=== PATIENT | female | born 1970 | race American Indian/Alaskan Native ===

== ENCOUNTER 2019-02-11 09:35 | Emergency (ER) | payer SELFPAY ==
[2019-02-11 09:42] VITALS: BP 162/85
[2019-02-11] MEDS ORDERED: DECADRON IM ONE (10:02)
[2019-02-11] MEDS ORDERED: TORADOL IM ONE (10:02)
[2019-02-11] MEDS ORDERED: BICILLIN L-A IM ONE (10:03)
--- NOTE | 2019-02-11 10:06 | Emergency Department Report ---
ED ENT HPI - General Chief complaint: Sore Throat Stated complaint: HEADACHE/SORE THROAT Time Seen by Provider: 02/11/19 10:02 Source: patient Mode of arrival: Ambulatory Limitations: No Limitations - History of Present Illness Initial comments: 41-year-old female presents to ED with complaint of sore throat 3 days. Patient reports pain with swallowing, fever, headache, minor cough. Patient states headache and fever have resolved, however her sore throat remains. MD complaint: sore throat -: days(s) (3) Location: throat Severity: moderate Quality: sharp Consistency: constant Improves with: none Worsens with: swallowing Associated Symptoms: fever, cough, pain with swallowing, sore throat - Related Data Previous Rx's Medication Instructions Recorded Last Taken Type Naproxen [Naprosyn] 500 mg PO BID #20 tablet 02/11/19 Unknown Rx Allergies Allergy/AdvReac Type Severity Reaction Status Date / Time No Known Allergies Allergy Verified 02/11/19 09:42 ED Dental HPI - General Chief complaint: Sore Throat Stated complaint: HEADACHE/SORE THROAT Time Seen by Provider: 02/11/19 10:02 Source: patient Mode of arrival: Ambulatory Limitations: No Limitations - Related Data Previous Rx's Medication Instructions Recorded Last Taken Type Naproxen [Naprosyn] 500 mg PO BID #20 tablet 02/11/19 Unknown Rx Allergies Allergy/AdvReac Type Severity Reaction Status Date / Time No Known Allergies Allergy Verified 02/11/19 09:42 ED Review of Systems ROS: Stated complaint: HEADACHE/SORE THROAT Other details as noted in HPI Comment: All other systems reviewed and negative Constitutional: fever ENT: throat pain Respiratory: cough Gastrointestinal: denies: nausea, vomiting Neurological: headache ED Past Medical Hx - Past Medical History Previous Medical History?: No - Surgical History Additional Surgical History: Hysterectomy - Social History Smoking Status: Never Smoker Substance Use Type: None - Medications Home Medications: Home Medications Medication Instructions Recorded Confirmed Last Taken Type Naproxen [Naprosyn] 500 mg PO BID #20 tablet 02/11/19 Unknown Rx ED Physical Exam - General Limitations: No Limitations General appearance: alert, in no apparent distress - Head Head exam: Present: atraumatic, normocephalic - Eye Eye exam: Present: normal appearance - ENT ENT exam: Present: other (bilateral tonsillar swelling with exudates present; uvula midline; no drooling) - Neck Neck exam: Present: lymphadenopathy - Respiratory Respiratory exam: Present: normal lung sounds bilaterally. Absent: respiratory distress, stridor - Cardiovascular Cardiovascular Exam: Present: normal rhythm, tachycardia - GI/Abdominal GI/Abdominal exam: Absent: distended - Extremities Exam Extremities exam: Present: normal inspection - Neurological Exam Neurological exam: Present: alert, oriented X3, CN II-XII intact. Absent: motor sensory deficit - Psychiatric Psychiatric exam: Present: normal affect, normal mood - Skin Skin exam: Present: warm, dry, intact, normal color. Absent: rash ED Course Vital Signs 02/11/19 09:41 Temperature 98.9 F Pulse Rate 112 H Respiratory 16 Rate Blood Pressure 162/85 O2 Sat by Pulse 97 Oximetry ED Medical Decision Making - Medical Decision Making - bilateral tonsillar enlargement w/ exudates present - likely no abscess at this time as both tonsil equal in size, uvula midline, pt afbrile - positive strep test - airway intact, pt not drooling - decadron, toradol, bicillin LA given here in ED - ENT f/u info given - return precautions given - Differential Diagnosis strep throat, tonsillitis Critical care attestation.: If time is entered above; I have spent that time in minutes in the direct care of this critically ill patient, excluding procedure time. ED Disposition Clinical Impression: Acute tonsillitis Disposition: TO HOME OR SELFCARE Is pt being admited?: No Condition: Stable Instructions: Tonsillitis (ED) Prescriptions: Naproxen [Naprosyn] 500 mg PO BID #20 tablet Referrals: [facility] MD CLARA [Primary Care Provider] - 3-5 Days JUANA WOODS MD [Staff Physician] - 3-5 Days Forms: Work/School Release Form(ED) Time of Disposition: 10:38
== END 2019-02-11 11:06 | disposition home or self-care (01) ==
LOC: ED 09:35
DX: J03.90 Acute tonsillitis, unspecified (principal); Z90.710 Acquired absence of both cervix and uterus
CPT/HCPCS: 87430; 96372; 99283; J0561; J1100; J1885

== ENCOUNTER 2021-10-06 15:17 | Inpatient (IN) | payer OTHER ==
[2021-10-06] MEDS ORDERED: SODIUM CHLORIDE 0.9% 1000 ML 1,000 ML IV ONE ×2 (15:20→16:05)
--- NOTE | 2021-10-06 15:28 | Emergency Department Report ---
ED GI Bleed HPI - General Chief complaint: GI Bleed Stated complaint: GI BLEED Time Seen by Provider: 10/06/21 15:18 Source: patient Mode of arrival: Wheelchair Limitations: No Limitations - History of Present Illness Initial comments: 51-year female the past medical history myasthenia gravis presents to the hospital with rectal bleeding and syncopal episode in triage. Patient states she was at work, went to the bathroom, noticed blood when wiping after bowel movement. She then had the urge to have additional bowel movements and had watery bloody rectal output with very little stool. Patient felt lightheaded in route to the hospital and had a syncopal episode witnessed by staff. Staff reports that patient struck her head pretty hard on the ground. Patient complains of a frontal headache. Patient denies previous history of GI bleed. He drinks alcohol heavily over the weekend but denies - Related Data Home Medications Medication Instructions Recorded Confirmed Last Taken Ascorbic Acid [Vitamin C] 1,000 mg PO QDAY 10/06/21 10/06/21 Unknown Ashwagandha Root Extract 300 mg PO QDAY 10/06/21 10/06/21 Unknown Cholecalciferol Vit D3 [Vitamin D3 1,000 unit PO QDAY 10/06/21 10/06/21 Unknown 1,000 UNIT TAB] Ferrous Sulfate [Iron 325 MG] 325 mg PO QDAY 10/06/21 10/06/21 Unknown Pyridostigmine [Mestinon] 60 mg PO Q6HR 10/06/21 10/06/21 Unknown Allergies Allergy/AdvReac Type Severity Reaction Status Date / Time No Known Allergies Allergy Verified 02/11/19 09:42 ED Review of Systems ROS: Stated complaint: GI BLEED Other details as noted in HPI ED Past Medical Hx - Surgical History Additional Surgical History: Hysterectomy - Social History Smoking Status: Never Smoker Substance Use Type: None - Medications Home Medications: Home Medications Medication Instructions Recorded Confirmed Last Taken Type Ascorbic Acid [Vitamin C] 1,000 mg PO QDAY 10/06/21 10/06/21 Unknown History Ashwagandha Root Extract 300 mg PO QDAY 10/06/21 10/06/21 Unknown History Cholecalciferol Vit D3 [Vitamin D3 1,000 unit PO QDAY 10/06/21 10/06/21 Unknown History 1,000 UNIT TAB] Ferrous Sulfate [Iron 325 MG] 325 mg PO QDAY 10/06/21 10/06/21 Unknown History Pyridostigmine [Mestinon] 60 mg PO Q6HR 10/06/21 10/06/21 Unknown History ED Course Vital Signs 10/06/21 10/06/21 10/06/21 15:12 15:15 15:19 Temperature 98.3 F Pulse Rate 88 85 89 Respiratory 20 30 H 18 Rate Blood Pressure 106/63 Blood Pressure 106/63 [Left] O2 Sat by Pulse 100 100 100 Oximetry 10/06/21 10/06/21 10/06/21 15:31 15:45 16:01 Temperature Pulse Rate 77 87 Respiratory 15 18 Rate Blood Pressure 73/37 109/57 109/57 Blood Pressure [Left] O2 Sat by Pulse 99 97 Oximetry 10/06/21 10/06/21 10/06/21 16:14 16:15 16:39 Temperature Pulse Rate 91 H 117 H Respiratory 15 28 H Rate Blood Pressure 119/36 Blood Pressure [Left] O2 Sat by Pulse 100 100 96 Oximetry 10/06/21 10/06/21 10/06/21 16:45 17:01 17:15 Temperature Pulse Rate 104 H 88 89 Respiratory 18 Rate Blood Pressure 141/40 115/53 121/62 Blood Pressure [Left] O2 Sat by Pulse 100 100 100 Oximetry 10/06/21 10/06/21 10/06/21 17:31 17:45 18:01 Temperature Pulse Rate 92 H 88 92 H Respiratory Rate Blood Pressure 117/60 122/62 114/61 Blood Pressure [Left] O2 Sat by Pulse 100 100 100 Oximetry 10/06/21 10/06/21 10/06/21 18:15 18:31 18:45 Temperature Pulse Rate 96 H 91 H Respiratory Rate Blood Pressure 117/59 128/59 119/68 Blood Pressure [Left] O2 Sat by Pulse 100 100 100 Oximetry - Consultations Consultation #1: 10/06/21 15: 31 Case discussed emergency room documentation patient presentation of active rectal hemorrhage syncope. Labs and CT orders pending ED Medical Decision Making - Lab Data Result diagrams: 10/06/21 15:23 10/06/21 15:23 Lab Results 10/06/21 10/06/21 10/06/21 Range/Units 15:23 15:23 15:23 WBC 11.5 H (4.5-11.0) K/mm3 RBC 3.77 (3.65-5.03) M/mm3 Hgb 11.2 (10.1-14.3) gm/dl Hct 36.3 (30.3-42.9) % MCV 96 (79-97) fl MCH 30 (28-32) pg MCHC 31 (30-34) % RDW 14.2 (13.2-15.2) % Plt Count 200 (140-440) K/mm3 Lymph % (Auto) 33.3 (13.4-35.0) % Steele % (Auto) 8.8 H (0.0-7.3) % Eos % (Auto) 1.6 (0.0-4.3) % Baso % (Auto) 0.4 (0.0-1.8) % Lymph # (Auto) 3.8 (1.2-5.4) K/mm3 Steele # (Auto) 1.0 H (0.0-0.8) K/mm3 Eos # (Auto) 0.2 (0.0-0.4) K/mm3 Baso # (Auto) 0.0 (0.0-0.1) K/mm3 Seg Neutrophils % 55.9 (40.0-70.0) % Seg Neutrophils # 6.4 (1.8-7.7) K/mm3 PT 15.6 H (12.2-14.9) Sec. INR 1.12 (0.87-1.13) APTT 21.4 L (24.2-36.6) Sec. Sodium 141 (137-145) mmol/L Potassium 3.1 L (3.6-5.0) mmol/L Chloride 106.1 (98-107) mmol/L Carbon Dioxide 21 L (22-30) mmol/L Anion Gap 17 mmol/L BUN 8 (7-17) mg/dL Creatinine 0.7 (0.6-1.2) mg/dL Estimated GFR > 60 ml/min BUN/Creatinine Ratio 11 % Glucose 135 H (65-100) mg/dL Calcium 8.9 (8.4-10.2) mg/dL Magnesium (1.7-2.3) mg/dL Total Bilirubin 0.20 (0.1-1.2) mg/dL AST 19 (5-40) units/L ALT 10 (7-56) units/L Alkaline Phosphatase 80 (35-129) units/L Troponin T < 0.010 (0.00-0.029) ng/mL Total Protein 6.6 (6.3-8.2) g/dL Albumin 3.7 L (3.9-5) g/dL Albumin/Globulin Ratio 1.3 % Blood Type Antibody Screen Crossmatch 10/06/21 10/06/21 Range/Units 15:23 16:23 WBC (4.5-11.0) K/mm3 RBC (3.65-5.03) M/mm3 Hgb (10.1-14.3) gm/dl Hct (30.3-42.9) % MCV (79-97) fl MCH (28-32) pg MCHC (30-34) % RDW (13.2-15.2) % Plt Count (140-440) K/mm3 Lymph % (Auto) (13.4-35.0) % Steele % (Auto) (0.0-7.3) % Eos % (Auto) (0.0-4.3) % Baso % (Auto) (0.0-1.8) % Lymph # (Auto) (1.2-5.4) K/mm3 Steele # (Auto) (0.0-0.8) K/mm3 Eos # (Auto) (0.0-0.4) K/mm3 Baso # (Auto) (0.0-0.1) K/mm3 Seg Neutrophils % (40.0-70.0) % Seg Neutrophils # (1.8-7.7) K/mm3 PT (12.2-14.9) Sec. INR (0.87-1.13) APTT (24.2-36.6) Sec. Sodium (137-145) mmol/L Potassium (3.6-5.0) mmol/L Chloride (98-107) mmol/L Carbon Dioxide (22-30) mmol/L Anion Gap mmol/L BUN (7-17) mg/dL Creatinine (0.6-1.2) mg/dL Estimated GFR ml/min BUN/Creatinine Ratio % Glucose (65-100) mg/dL Calcium (8.4-10.2) mg/dL Magnesium 1.90 (1.7-2.3) mg/dL Total Bilirubin (0.1-1.2) mg/dL AST (5-40) units/L ALT (7-56) units/L Alkaline Phosphatase (35-129) units/L Troponin T (0.00-0.029) ng/mL Total Protein (6.3-8.2) g/dL Albumin (3.9-5) g/dL Albumin/Globulin Ratio % Blood Type O POSITIVE Antibody Screen Negative Crossmatch See Detail - EKG Data -: EKG Interpreted by Pr EKG shows normal: sinus rhythm, ST-T waves (no stemi) Rate: normal (88) - Radiology Data Radiology results: report reviewed CT head/brain wo con INDICATION / CLINICAL INFORMATION: 51 years Female; syncope, head injury. TECHNIQUE: Routine CT head without contrast. All CT scans at this location are performed using CT dose reduction for ALAEscapia by means of automated exposure control. COMPARISON: None. FINDINGS: BRAIN / INTRACRANIAL CONTENTS: The motion degrades the image quality. However, the brain appears to demonstrate appropriate attenuation for age. The ventricular system is within normal limits in size and configuration. There is no clear CT evidence of acute intracranial hemorrhage or significant mass effect. ORBITS: No significant abnormality of visualized orbits. SINUSES / MASTOIDS: No significant abnormality in the visualized paranasal sinuses or mastoid air cells. CRANIOCERVICAL JUNCTION: No significant abnormality. ADDITIONAL FINDINGS: None. IMPRESSION: 1. There is no clear CT evidence of acute intracranial process. CTA ABDOMEN AND PELVIS WITH CONTRAST INDICATION / CLINICAL INFORMATION: rectal hemorrhage. TECHNIQUE: Axial CT images were obtained through the abdomen and pelvis after after injection of 100 cc of Omnipaque 350 IV contrast. 3 plane MIP / 3D reconstructions were produced. All CT scans at this location are performed using CT dose reduction for Uvinum by means of automated exposure control. COMPARISON: None available. FINDINGS: AORTA: No significant abnormality. RENAL ARTERIES: No significant abnormality. CELIAC ARTERY: No significant abnormality. SUPERIOR MESENTERIC ARTERY: No significant abnormality. INFERIOR MESENTERIC ARTERY: No significant abnormality. RIGHT ILIAC ARTERIES: No significant abnormality.. LEFT ILIAC ARTERIES: No significant abnormality.. ADDITIONAL FINDINGS: There is diverticulosis without diverticulitis. Several bilateral renal cysts. No hydronephrosis or nephrolithiasis. SKELETAL: No significant abnormality. IMPRESSION: 1. There is diverticulosis without diverticulitis, otherwise no CT findings to explain symptomatology. - Medical Decision Making 51-year-old female presents to the hospital with rectal bleeding and syncope. Patient did have transient hypotension that improved with IV fluid bolus. Patient did not have recurrent rectal hemorrhage after initial presentation. Initial hemoglobin 11.2 but I anticipate this will drop based on patient's presentation and syncope. CT head unremarkable. CT abdomen pelvis reveals diverticulosis likely the source of the bleeding. Case emergently discussed with GI who will consult on the patient today. Hospitalist to admit. 2 units of PRBCs ordered for type and cross and placed on hold Critical Care Time: Yes Critical care time in (mins) excluding proc time.: 35 Critical care attestation.: If time is entered above; I have spent that time in minutes in the direct care of this critically ill patient, excluding procedure time. Critical Care Time: 35Minutes of critical care time excluding procedures were used in the care of the patient. I came immediately to the bedside upon patient's arrival. I discussed treatment plan with the nursing team members. I reviewed electronic record. Patient required multiple interventions and reassessments. Emergency spoke to GI physician regarding patient ED Disposition Clinical Impression: Rectal bleed, Diverticulosis, Syncope Disposition: ADMITTED INPATIENT Is pt being admited?: Yes Condition: Stable Time of Disposition: 17:41 (venkatesh)
[2021-10-06 15:38] LABS: Basophils % (Auto) 0.4 % (0.0-1.8); Eosinophils # (Auto) 0.2 K/mm3 (0.0-0.4); Eosinophils % (Auto) 1.6 % (0.0-4.3); Hematocrit 36.3 % (30.3-42.9); Hemoglobin 11.2 gm/dl (10.1-14.3); Lymphocytes # (Auto) 3.8 K/mm3 (1.2-5.4); Lymphocytes % (Auto) 33.3 % (13.4-35.0); Mean Corpuscular HGB Conc 31 % (30-34); Mean Corpuscular Volume 96 fl (79-97); Monocytes % (Auto) 8.8 % (0.0-7.3); Platelet Count 200 K/mm3 (140-440); Red Blood Count 3.77 M/mm3 (3.65-5.03); Red Cell Distribution Width 14.2 % (13.2-15.2)
[2021-10-06 15:49] LABS: INR 1.12 (0.87-1.13)
[2021-10-06 15:50] LABS: Partial Thromboplastin Time 21.4 Sec. (24.2-36.6)
[2021-10-06 15:56] LABS: Alanine Aminotransferase 10 units/L (7-56); Albumin 3.7 g/dL (3.9-5); Blood Urea Nitrogen 8 mg/dL (7-17); Calcium 8.9 mg/dL (8.4-10.2); Hemolysis Index 24
[2021-10-06 15:59] LABS: BUN/Creatinine Ratio 11
[2021-10-06] MEDS ORDERED: SODIUM CHLORIDE 0.9% 500 ML 500 ML IV ONE (16:04)
[2021-10-06] MEDS: POTASSIUM CHLORIDE 10 MEQ 10 MEQ/100 ML BAG IV SCH ×2 (17:05→18:19)
--- NOTE | 2021-10-06 17:13 | Cat Scan Report ---
CT head/brain wo con INDICATION / CLINICAL INFORMATION: 51 years Female; syncope, head injury. TECHNIQUE: Routine CT head without contrast. All CT scans at this location are performed using CT dos e reduction for ALARA by means of automated exposure control. COMPARISON: None. FINDINGS: BRAIN / INTRACRANIAL CONTENTS: The motion degrades the image quality. However, the brain appears to d emonstrate appropriate attenuation for age. The ventricular system is within normal limits in size an d configuration. There is no clear CT evidence of acute intracranial hemorrhage or significant mass e ffect. ORBITS: No significant abnormality of visualized orbits. SINUSES / MASTOIDS: No significant abnormality in the visualized paranasal sinuses or mastoid air yari ls. CRANIOCERVICAL JUNCTION: No significant abnormality. ADDITIONAL FINDINGS: None. IMPRESSION: 1. There is no clear CT evidence of acute intracranial process. Signer Name: Lico Licona MD Signed: 10/06/2021 5:08 PM Workstation Name: [id number]
--- NOTE | 2021-10-06 17:21 | Cat Scan Report ---
CTA ABDOMEN AND PELVIS WITH CONTRAST INDICATION / CLINICAL INFORMATION: rectal hemorrhage. TECHNIQUE: Axial CT images were obtained through the abdomen and pelvis after after injection of 100 cc of Omnipaque 350 IV contrast. 3 plane MIP / 3D reconstructions were produced. All CT scans at this location are performed using CT dose reduction for ALARA by means of automated exposure control. COMPARISON: None available. FINDINGS: AORTA: No significant abnormality. RENAL ARTERIES: No significant abnormality. CELIAC ARTERY: No significant abnormality. SUPERIOR MESENTERIC ARTERY: No significant abnormality. INFERIOR MESENTERIC ARTERY: No significant abnormality. RIGHT ILIAC ARTERIES: No significant abnormality.. LEFT ILIAC ARTERIES: No significant abnormality.. ADDITIONAL FINDINGS: There is diverticulosis without diverticulitis. Several bilateral renal cysts. N o hydronephrosis or nephrolithiasis. SKELETAL: No significant abnormality. IMPRESSION: 1. There is diverticulosis without diverticulitis, otherwise no CT findings to explain symptomatology . Signer Name: Saurabh Pineda DO Signed: 10/06/2021 5:17 PM Workstation Name: [id number]
[2021-10-06] MEDS ORDERED: PANTOPRAZOLE 40 MG INJ IV ONE (17:36)
--- NOTE | 2021-10-06 18:58 | History and Physical Report ---
History of Present Illness Date of examination: 10/06/21 Date of admission: 10/06/2021 Chief complaint: Lower GI bleed since a.m. History of present illness: 51-year-old female with past medical history of myasthenia gravis comes in for recurrent rectal bleeding associated with a syncopal episode in area. The first episode of large lower GI bleed. Never had a GI bleed in the past. Patient had a large bloody bowel movement this morning followed by amiodarone. 3. Patient syncopized. Patient struck her head pretty hard on the ground. Complains of frontal headache. No history of GI bleed. No chest pain. Feels weak. Feels lightheaded when standing. -Past medical history --Myasthenia gravis - Surgical History --Additional Surgical History: Hysterectomy - Social History --Smoking Status: Never Smoker --Substance Use Type: None - Family history --Htn Review of Systems ROS: Constitutional no weight loss or weight gain no fever or chills HEENT no sore throat no post nasal drip no diplopia Neck no neck stiffness no lymph gland enlargement Chest and lungs no shortness of breath cough or wheezing CVS no chest pain no diaphoresis no palpitations GI severe lower GI bleed Genitourinary system no dysuria no flank pain Musculoskeletal system no muscle pains no joint pains [employer] no syncope no seizures Skin no rash no itching Psychiatric no depression no homicidal or suicidal tendencies Hematologic no lymphedema or bruising Endocrine no polydipsia no polyuria no cold intolerance no heat intolerance Medications and Allergies Allergies Allergy/AdvReac Type Severity Reaction Status Date / Time No Known Allergies Allergy Verified 02/11/19 09:42 Home Medications Medication Instructions Recorded Confirmed Last Taken Type Ascorbic Acid [Vitamin C] 1,000 mg PO QDAY 10/06/21 10/06/21 Unknown History Ashwagandha Root Extract 300 mg PO QDAY 10/06/21 10/06/21 Unknown History Cholecalciferol Vit D3 [Vitamin D3 1,000 unit PO QDAY 10/06/21 10/06/21 Unknown History 1,000 UNIT TAB] Ferrous Sulfate [Iron 325 MG] 325 mg PO QDAY 10/06/21 10/06/21 Unknown History Pyridostigmine [Mestinon] 60 mg PO Q6HR 01/27/22 01/27/22 Unknown History Active Meds: Active Medications Potassium Chloride (Kcl 10meq/100ml) 10 meq in 100 mls @ 100 mls/hr IV Q1H TEMO Stop: 10/06/21 18:59 Last Admin: 10/06/21 18:19 Dose: 100 mls/hr Exam - Constitutional Vitals: Temp Pulse Resp BP Pulse Ox 98.3 F 91 H 18 119/68 100 10/06/21 15:19 10/06/21 18:45 10/06/21 16:45 10/06/21 18:45 10/06/21 18:45 General appearance: Present: no acute distress, well-nourished - EENT Eyes: Present: PERRL ENT: hearing intact, clear oral mucosa - Neck Neck: Present: supple, normal ROM - Respiratory Respiratory effort: normal Respiratory: bilateral: CTA - Cardiovascular Heart rate: 98 Rhythm: regular Heart Sounds: Present: S1 & S2. Absent: rub, click - Extremities Extremities: pulses symmetrical, No edema Peripheral Pulses: within normal limits - Abdominal General gastrointestinal: Present: soft, non-tender, non-distended, normal bowel sounds Female genitourinary: Present: normal - Rectal Rectal Exam: stool bloody - Integumentary Integumentary: Present: clear, warm, dry - Musculoskeletal Musculoskeletal: gait normal, strength equal bilaterally - Psychiatric Psychiatric: appropriate mood/affect, intact judgment & insight - Neurologic Neurologic: CNII-XII intact, moves all extremities HEART Score - HEART Score Troponin: Troponin T < 0.010 ng/mL (0.00-0.029) 10/06/21 15:23 Results - Labs CBC & Chem 7: 10/07/21 00:46 10/06/21 15:23 Labs: Laboratory Last Values WBC 11.5 K/mm3 (4.5-11.0) H 10/06/21 15:23 RBC 3.77 M/mm3 (3.65-5.03) 10/06/21 15:23 Hgb 11.2 gm/dl (10.1-14.3) 10/06/21 15:23 Hct 36.3 % (30.3-42.9) 10/06/21 15:23 MCV 96 fl (79-97) 10/06/21 15:23 MCH 30 pg (28-32) 10/06/21 15:23 MCHC 31 % (30-34) 10/06/21 15:23 RDW 14.2 % (13.2-15.2) 10/06/21 15:23 Plt Count 200 K/mm3 (140-440) 10/06/21 15:23 Lymph % (Auto) 33.3 % (13.4-35.0) 10/06/21 15:23 [place] % (Auto) 8.8 % (0.0-7.3) H 10/06/21 15:23 Eos % (Auto) 1.6 % (0.0-4.3) 10/06/21 15:23 Baso % (Auto) 0.4 % (0.0-1.8) 10/06/21 15:23 Lymph # (Auto) 3.8 K/mm3 (1.2-5.4) 10/06/21 15:23 [place] # (Auto) 1.0 K/mm3 (0.0-0.8) H 10/06/21 15:23 Eos # (Auto) 0.2 K/mm3 (0.0-0.4) 10/06/21 15:23 Baso # (Auto) 0.0 K/mm3 (0.0-0.1) 10/06/21 15: Seg Neutrophils % 55.9 % (40.0-70.0) 10/06/21 15: Seg Neutrophils # 6.4 K/mm3 (1.8-7.7) 10/06/21 15:23 PT 15.6 Sec. (12.2-14.9) H 10/06/21 15:23 INR 1.12 (0.87-1.13) 10/06/21 15:23 APTT 21.4 Sec. (24.2-36.6) L 10/06/21 15:23 Sodium 141 mmol/L (137-145) 10/06/21 15:23 Potassium 3.1 mmol/L (3.6-5.0) L 10/06/21 15:23 Chloride 106.1 mmol/L (98-107) 10/06/21 15:23 Carbon Dioxide 21 mmol/L (22-30) L 10/06/21 15:23 Anion Gap 17 mmol/L 10/06/21 15:23 BUN 8 mg/dL (7-17) 10/06/21 15:23 Creatinine 0.7 mg/dL (0.6-1.2) 10/06/21 15:23 Estimated GFR > 60 ml/min 10/06/21 15:23 BUN/Creatinine Ratio 11 % 10/06/21 15:23 Glucose 135 mg/dL (65-100) H 10/06/21 15:23 Calcium 8.9 mg/dL (8.4-10.2) 10/06/21 15:23 Magnesium 1.90 mg/dL (1.7-2.3) 10/06/21 16:23 Total Bilirubin 0.20 mg/dL (0.1-1.2) 10/06/21 15:23 AST 19 units/L (5-40) 10/06/21 15:23 ALT 10 units/L (7-56) 10/06/21 15:23 Alkaline Phosphatase 80 units/L (35-129) 10/06/21 15:23 Troponin T < 0.010 ng/mL (0.00-0.029) 10/06/21 15:23 Total Protein 6.6 g/dL (6.3-8.2) 10/06/21 15:23 Albumin 3.7 g/dL (3.9-5) L 10/06/21 15:23 Albumin/Globulin Ratio 1.3 % 10/06/21 15:23 Blood Type O POSITIVE 10/06/21 15:23 Antibody Screen Negative 10/06/21 15:23 Crossmatch See Detail 10/06/21 15:23 Short CBC 10/06/21 10/06/21 10/07/21 Range/Units 15:23 20:29 00:46 WBC 11.5 H (4.5-11.0) K/mm3 Hgb 11.2 9.4 L 9.2 L (10.1-14.3) gm/dl Hct 36.3 29.8 L D 29.2 L (30.3-42.9) % Plt Count 200 (140-440) K/mm3 BMP 10/06/21 15:23 Sodium 141 Potassium 3.1 L Chloride 106.1 Carbon Dioxide 21 L BUN 8 Creatinine 0.7 Glucose 135 H Calcium 8.9 Cardiac Enzymes 10/06/21 Range/Units 15:23 Troponin T < 0.010 (0.00-0.029) ng/mL Liver Function 10/06/21 Range/Units 15:23 Total Bilirubin 0.20 (0.1-1.2) mg/dL AST 19 (5-40) units/L ALT 10 (7-56) units/L Alkaline Phosphatase 80 (35-129) units/L Albumin 3.7 L (3.9-5) g/dL - Imaging and Cardiology CT scan - abdomen: report reviewed Imaging and Cardiology: Abdominal /pelvis CT scan There is diverticulosis without diverticulitis. Otherwise no CT findings to explain symptomatology. CT head no acute findings Assessment and Plan Advance Directives: Yes (Full code) VTE prophylaxis?: Mechanical Plan of care discussed with patient/family: Yes - Patient Problems (1) Lower GI bleed Current Visit: Yes Status: Acute Plan to address problem: Given the excessive amount of bright red blood--- possible diverticular bleed First episode GI consult requested (2) Acute blood loss anemia Current Visit: Yes Status: Acute Plan to address problem: Transfuse if necessary Serial hemoglobin and hematocrits (3) Syncope Current Visit: Yes Status: Acute Plan to address problem: Secondary to volume loss No further work-up (4) Head concussion Current Visit: Yes Status: Acute Qualifiers: Encounter type: initial encounter Loss of consciousness presence/duration: without LOC Qualified Code(s): S06.0X0A - Concussion without loss of consciousness, initial encounter Plan to address problem: Mild to moderate Analgesics as necessary (5) DVT prophylaxis Current Visit: Yes Status: Acute Plan to address problem: On SCDs and GI prophylaxis (6) Advance care planning Current Visit: Yes Status: Acute Plan to address problem: Disease education conducted, care plan discussed, diagnosis discussed, prognosis discussed. Patient is full code. Patient acknowledges understanding and agreement with care plan. +30 minutes.
[2021-10-06] MEDS ORDERED: HYDROmorphone 1 MG/1 ML INJ IV PRN (18:59)
[2021-10-06] MEDS ORDERED: ACETAMINOPHEN 325 MG TAB PO PRN (18:59)
[2021-10-06] MEDS ORDERED: ONDANSETRON 4 MG/2 ML INJ IV PRN (18:59)
[2021-10-06] MEDS ORDERED: MORPHINE 2 MG/1 ML INJ IV PRN (18:59)
[2021-10-06] MEDS ORDERED: SODIUM CHLORIDE 0.9% 1000 ML 1,000 ML IV SCH (19:00)
--- NOTE | 2021-10-06 19:42 | Gastroenterology Consultation ---
History of Present Illness - Reason for Consult Consult date: 10/06/21 GI bleed Requesting physician: NATI MAYO - History of Present Illness This is a 51 yo female with pmh of myasthenia gravis presenting to the ED for 1 day h/o rectal bleeding. Reports having bright red blood per rectum since 2 pm and had cramping lower abdominal pain followed by multiple episodes of blood per rectum. In the ED, she had a syncopal episode witnessed by staff and noted to have large bloody stool. She denies any anticoagulation use, or prior h/o GI bleed. No prior EGD/colonoscopy. No family hx of Colon cancer. Reports ibuprofen occasionally for SANTOS. Medication list reviewed. Past History Past Medical History: other (myasthenia gravis) Past Surgical History: No surgical history Social history: full code. denies: smoking Family history: no significant family history Medications and Allergies Allergies Allergy/AdvReac Type Severity Reaction Status Date / Time No Known Allergies Allergy Verified 02/11/19 09:42 Home Medications Medication Instructions Recorded Confirmed Last Taken Type Ascorbic Acid [Vitamin C] 1,000 mg PO QDAY 10/06/21 10/06/21 Unknown History Ashwagandha Root Extract 300 mg PO QDAY 10/06/21 10/06/21 Unknown History Cholecalciferol Vit D3 [Vitamin D3 1,000 unit PO QDAY 10/06/21 10/06/21 Unknown History 1,000 UNIT TAB] Ferrous Sulfate [Iron 325 MG] 325 mg PO QDAY 10/06/21 10/06/21 Unknown History Pyridostigmine [Mestinon] 60 mg PO Q6HR 10/06/21 10/06/21 Unknown History Active Meds: Active Medications Acetaminophen (Acetaminophen 325 Mg Tab) 650 mg PO Q4H PRN PRN Reason: Pain MILD(1-3)/Fever >100.5/SANTOS Famotidine (Famotidine 20 Mg/2 Ml Inj) 20 mg IV BID TEMO Hydromorphone HCl (Hydromorphone 1 Mg/1 Ml Inj) 0.5 mg IV Q3H PRN PRN Reason: Pain , Severe (7-10) Sodium Chloride (Nacl 0.9% 1000 Ml) 1,000 mls @ 75 mls/hr IV DIRECT TEMO Morphine Sulfate (Morphine 2 Mg/1 Ml Inj) 2 mg IV Q4H PRN PRN Reason: Pain, Moderate (4-6) Ondansetron HCl (Ondansetron 4 Mg/2 Ml Inj) 4 mg IV Q8H PRN PRN Reason: Nausea And Vomiting Sodium Chloride (Sodium Chloride 0.9% 10 Ml Flush Syringe) 10 ml IV BID TEMO Sodium Chloride (Sodium Chloride 0.9% 10 Ml Flush Syringe) 10 ml IV PRN PRN PRN Reason: LINE FLUSH Review of Systems - Review of Systems All systems: negative Constitutional: no weight loss, no weight gain, no fever, no chills Eyes: no change in vision Ears, Nose, Throat: no decreased hearing Cardiovascular: no chest pain, no edema Respiratory: no cough Gastrointestinal: abdominal pain, BRBPR, hematochezia, no nausea, no vomiting, no melena Rectal: no pain Musculoskeletal: no gait dysfunction Neurological: weakness, no paralysis Psychiatric: no anxiety Hematologic/Lymphatic: no easy bruising Allergic/Immunologic: no wheezing Exam - Constitutional Vital Signs: Temp Pulse Resp BP Pulse Ox 98.3 F 91 H 18 119/68 100 10/06/21 15:19 10/06/21 18:45 10/06/21 16:45 10/06/21 18:45 10/06/21 18:45 General appearance: no acute distress - EENT Eyes: EOM intact ENT: hearing intact - Neck Neck: supple - Respiratory Respiratory effort: normal - Cardiovascular Rhythm: regular Heart Sounds: Present: S1 & S2 Extremities: No edema - Gastrointestinal General gastrointestinal: Present: soft, non-tender, non-distended - Integumentary Integumentary: Present: clear, warm - Musculoskeletal Musculoskeletal: normal - Neurologic Neurological: alert and oriented x3 - Psychiatric Psychiatric: appropriate mood/affect - Labs CBC & Chem 7: 10/06/21 15:23 10/06/21 15:23 Lab Results: Laboratory Results - last 24 hr 10/06/21 10/06/21 10/06/21 15:23 15:23 15:23 WBC 11.5 H RBC 3.77 Hgb 11.2 Hct 36.3 MCV 96 MCH 30 MCHC 31 RDW 14.2 Plt Count 200 Lymph % (Auto) 33.3 [place] % (Auto) 8.8 H Eos % (Auto) 1.6 Baso % (Auto) 0.4 Lymph # (Auto) 3.8 [place] # (Auto) 1.0 H Eos # (Auto) 0.2 Baso # (Auto) 0.0 Seg Neutrophils % 55.9 Seg Neutrophils # 6.4 PT 15.6 H INR 1.12 APTT 21.4 L Sodium 141 Potassium 3.1 L Chloride 106.1 Carbon Dioxide 21 L Anion Gap 17 BUN 8 Creatinine 0.7 Estimated GFR > 60 BUN/Creatinine Ratio 11 Glucose 135 H Calcium 8.9 Magnesium Total Bilirubin 0.20 AST 19 ALT 10 Alkaline Phosphatase 80 Troponin T < 0.010 Total Protein 6.6 Albumin 3.7 L Albumin/Globulin Ratio 1.3 Blood Type Antibody Screen Crossmatch 10/06/21 10/06/21 15:23 16:23 WBC RBC Hgb Hct MCV MCH MCHC RDW Plt Count Lymph % (Auto) [place] % (Auto) Eos % (Auto) Baso % (Auto) Lymph # (Auto) [place] # (Auto) Eos # (Auto) Baso # (Auto) Seg Neutrophils % Seg Neutrophils # PT INR APTT Sodium Potassium Chloride Carbon Dioxide Anion Gap BUN Creatinine Estimated GFR BUN/Creatinine Ratio Glucose Calcium Magnesium 1.90 Total Bilirubin AST ALT Alkaline Phosphatase Troponin T Total Protein Albumin Albumin/Globulin Ratio Blood Type O POSITIVE Antibody Screen Negative Crossmatch See Detail - Imaging CT Scan: report reviewed Assessment and Plan # Lower GI bleed - Hgb at 11 - CTA showing diverticulosis but no active bleeding. - suspect diverticular bleed vs ischemic colitis vs malignancy. Rec - will plan for colonoscopy tomorrow. - monitor H/H and transfuse as needed. - golytely prep - clear liquids and NPO MN. - Patient Problems (1) Rectal bleed Current Visit: Yes Status: Acute
[2021-10-06] MEDS ORDERED: POLYETHYLENE GLYCOL/ELECT SOLN 4000 ML PO ONE (19:43)
[2021-10-06 21:03] LABS: Hematocrit 29.8 % (30.3-42.9); Hemoglobin 9.4 gm/dl (10.1-14.3)
[2021-10-06] MEDS: FAMOTIDINE 20 MG/2 ML INJ IV SCH (22:40)
[2021-10-07 01:40] LABS: Hematocrit 29.2 % (30.3-42.9); Hemoglobin 9.2 gm/dl (10.1-14.3)
--- NOTE | 2021-10-07 10:27 | Electrocardiograph Report ---
[facility] Test Date: 2021-10-06 Test Time: 20:38:58 Pat Name: MALLORY HUERTA Department: Room: A387 Gender: F Allopathic Doctor: TAMIKO : 1970 Requested By: NATI MAYO Order Number: [id number] Reading MD: Macho Dimas Measurements Intervals [place] Rate: 88 P: 69 AR: 142 QRS: 46 QRSD: 79 T: 49 QT: 374 QTc: 452 Interpretive Statements Sinus rhythm No previous ECG available for comparison Electronically Signed On 10-07-2021 10:26:23 EST by Macho Dimas
[2021-10-07 10:55] LABS: Basophils % (Auto) 0.5 % (0.0-1.8); Eosinophils # (Auto) 0.1 K/mm3 (0.0-0.4); Eosinophils % (Auto) 1.3 % (0.0-4.3); Hematocrit 28.8 % (30.3-42.9); Hemoglobin 9.4 gm/dl (10.1-14.3); Lymphocytes # (Auto) 3.1 K/mm3 (1.2-5.4); Lymphocytes % (Auto) 35.4 % (13.4-35.0); Mean Corpuscular HGB Conc 33 % (30-34); Mean Corpuscular Volume 92 fl (79-97); Monocytes # (Auto) 0.9 K/mm3 (0.0-0.8); Monocytes % (Auto) 10.3 % (0.0-7.3); Platelet Count 177 K/mm3 (140-440); Red Blood Count 3.12 M/mm3 (3.65-5.03); Red Cell Distribution Width 13.5 % (13.2-15.2)
[2021-10-07 10:57] LABS: Blood Urea Nitrogen 6 mg/dL (7-17); Hemolysis Index 6
[2021-10-07 11:05] LABS: BUN/Creatinine Ratio 10
--- NOTE | 2021-10-07 14:51 | Anesthesia Consultation ---
Anesthesia Consult and Med Hx Date of service: 10/07/21 - Airway Anesthetic Teeth Evaluation: Good ROM Head & Neck: Adequate Mental/Hyoid Distance: Adequate Mallampati Class: Class II Intubation Access Assessment: Probably Good - Pre-Operative Health Status ASA Pre-Surgery Classification: ASA2 Proposed Anesthetic Plan: MAC - Pulmonary Hx Smoking: Yes (occasionally cigars) Hx Asthma: No COPD: No Hx Pneumonia: No - Central Nervous System Hx Neuromuscular Disorder: Yes (myasthenia gravis under control) Hx Seizures: Yes Hx Psychiatric Problems: No - Gastrointestinal Hx Ulcer: Yes (blood in stool) - Endocrine Hx End Stage Renal Disease: No
--- NOTE | 2021-10-07 14:52 | Anesthesia Day of Surgery ---
Anesthesia Day of Surgery - Day of Surgery Patient Examined: Yes Patient H&P Reviewed: Yes Patient is NPO: Yes
[2021-10-07] MEDS ORDERED: propofoL 200 MG/20 ML VIAL IV ONE (14:53)
--- NOTE | 2021-10-07 15:16 | Operative Report ---
Operative Report Operative Report: Colonoscopy: Procedure: Colonoscopy Endoscopist: Suraj Martinez MD Pre-operative Diagnosis/Indications:Rectal bleeding Post-operative Diagnosis:pandiverticulosis, internal hemorrhoids History:See consult note Sedation:MAC Procedure Details: Indications, risks, and benefits were explained and consent was obtained. Pt was placed in the left lateral decubitus position and sedated. Video colonoscope was inserted thru the anus after digital exam, and advanced to the cecum with difficulty. Scope was then gradually withdrawn with close inspection of the mucosa. Prep was good. Findings: 1. Multiple diverticula throughout the colon. No focal area of bleeding noted. 2. Normal terminal ileum seen on the examined part. 3. Mild nonbleeding internal hemorrhoids. 4. Otherwise, normal exam. Specimens:none Complications:None; patient tolerated the procedure well. Disposition:Recover in the GI lab and transfer to the floor when all criteria met. Impression: 1. Pandiverticulosis. Likely source of bleeding and now it appears to be resolved. 2. Mild internal hemorrhoids. 3. No blood seen throughout the exam. Recommendations: 1. Resume diet. 2. Ok for discharge per GI standpoint. Suraj Martinez MD (Jenny) [facility]
--- NOTE | 2021-10-07 17:04 | Post Anesthesia Evaluation ---
- Post Anesthesia Evaluation Patient Participated: Yes Airway Patent: Yes Stable Respiratory Function: Yes Nausea/Vomiting: No Temp > 96.8F: Yes Pain Manageable: Yes Adequeate Hydration: Yes Anesthesia Complications: No Block Receding Appropriately: Not Applicable Patient on Ventilator: No
[2021-10-07 17:26] LABS: Hematocrit 27.8 % (30.3-42.9); Hemoglobin 8.9 gm/dl (10.1-14.3)
[2021-10-07] MEDS: FAMOTIDINE 20 MG/2 ML INJ IV SCH (17:46)
--- NOTE | 2021-10-07 17:52 | Discharge Summary ---
Providers - Providers Date of Admission: 10/06/21 17:00 Attending physician: CARL MCNEIL MD 10/06/21 15:31 Consult to Physician [CONS] Urgent Comment: Consulting Provider: STEVE CRUZ Physician Instructions: Reason For Exam: rectal hemorrhage Primary care physician: [employer] Hospitalization Condition: Stable Hospital course: 51 yo female with pmh of myasthenia gravis presenting to the ED for 1 day h/o rectal bleeding. Reports having bright red blood per rectum since 2 pm and had cramping lower abdominal pain followed by multiple episodes of blood per rectum. In the ED, she had a syncopal episode witnessed by staff and noted to have large bloody stool. She denies any anticoagulation use, or prior h/o GI bleed. No prior EGD/colonoscopy. No family hx of Colon cancer. Reports ibuprofen occasionally for SANTOS. (1) Lower GI bleed Current Visit: Yes Status: Acute Plan to address problem: Given the excessive amount of bright red blood--- possible diverticular bleed First episode GI consult requested # Lower GI bleed - Hgb at 11 - CTA showing diverticulosis but no active bleeding. - suspect diverticular bleed Colonoscopy findings 1. Multiple diverticula throughout the colon. No focal area of bleeding noted. 2. Normal terminal ileum seen on the examined part. 3. Mild nonbleeding internal hemorrhoids. 4. Otherwise, normal exam. (2) Acute blood loss anemia Current Visit: Yes Status: Acute Plan to address problem: Transfuse if necessary Serial hemoglobin and hematocrits (3) Syncope Current Visit: Yes Status: Acute Plan to address problem: Secondary to volume loss No further work-up (4) Head concussion Current Visit: Yes Status: Acute Qualifiers: Encounter type: initial encounter Loss of consciousness presence/duration: without LOC Qualified Code(s): S06.0X0A - Concussion without loss of consciousness, initial encounter Plan to address problem: Mild to moderate (5) myasthenia gravis Stable on Mestinon Disposition: Patient stable post colonoscopy. First hemoglobin 9.2 in the last 8.9. Hemodynamically stable. No further GI bleed since admitted. Alert and oriented. GI recommended discharging the patient. Disposition: HOME / SELF CARE / HOMELESS Final Discharge Diagnosis (Prints w/discharge instructions): Rectal bleeding, likely diverticular. Acute blood loss anemia. Vasovagal syncope and fall in ED. Closed head injury/contusion of scalp. History of myasthenia gravis stable Core Measure Documentation - Palliative Care Palliative Care/ Comfort Measures: Not Applicable - Core Measures Any of the following diagnoses?: none Exam - Constitutional Vitals: Temp Pulse Resp BP Pulse Ox 98.1 F 76 16 129/76 100 10/07/21 16:00 10/07/21 16:00 10/07/21 16:00 10/07/21 16:00 10/07/21 16:00 General appearance: Present: no acute distress - EENT Eyes: Present: PERRL, EOM intact ENT: clear oral mucosa - Neck Neck: Present: supple - Respiratory Respiratory effort: normal Respiratory: bilateral: CTA - Cardiovascular Rhythm: regular - Extremities Extremities: No edema - Abdominal General gastrointestinal: Present: soft, non-tender, non-distended - Integumentary Integumentary: Present: warm. Absent: rash - Musculoskeletal Musculoskeletal: strength equal bilaterally - Psychiatric Psychiatric: appropriate mood/affect - Neurologic Neurologic: no focal deficits, moves all extremities Plan Activity: advance as tolerated Diet: regular Follow up with: JENNIFER JACOBO MD [Primary Care Provider] - 3-5 Days MIN,STEVE MOON MD [Staff Physician] - 14 Days Forms: Accompanied Note
[2021-10-07 19:51] VITALS: BP 128/60
== END 2021-10-07 20:15 | disposition home or self-care (01) | DRG 378 ==
LOC: ED 15:17 → 3A 17:00
PROVIDERS: ADMIT Internal Medicine; ATTEND Internal Medicine
PROC: 0DJD8ZZ Inspection of Lower Intestinal Tract, Via Natural or Artificial Opening Endoscopic (ICD-10-PCS; principal; 2021-10-07)
DX: K57.91 Diverticulosis of intestine, part unspecified, without perforation or abscess with bleeding (principal); S06.0X9A Concussion with loss of consciousness of unspecified duration, initial encounter; D62 Acute posthemorrhagic anemia; R55 Syncope and collapse; Z90.710 Acquired absence of both cervix and uterus; G70.00 Myasthenia gravis without (acute) exacerbation; K64.8 Other hemorrhoids; W18.39XA Other fall on same level, initial encounter; Y93.89 Activity, other specified; Y92.89 Other specified places as the place of occurrence of the external cause; Y99.8 Other external cause status; S00.03XA Contusion of scalp, initial encounter
CPT/HCPCS: 36415; 70450; 74174; 80048; 80053; 83735; 84484; 85014; 85018; 85025; 85610; 85730; 86850; 86900; 86901; 86920; 93005; 93010; G0378; J3490; J7120; Q0162; C9113; J2704; J3480; J7030; Q9967